=== PATIENT | female | born 2000 | race Caucasian/White ===

== ENCOUNTER 2025-05-19 17:21 | Emergency (ER) | payer OTHER ==
[~2025-05-19] VITALS: Ht 167.6 cm; Wt 105.0 kg
[2025-05-19 17:28] VITALS: O2SAT 98
[2025-05-19] MEDS ORDERED: AMOX1TAB16 MT (18:51)
[2025-05-19] MEDS ORDERED: IBUP-2028 PO (18:51)
[2025-05-19] MEDS ORDERED: ACET-2708 PO (18:51)
[2025-05-19 19:05] VITALS: BP 120/83; PULSE 82; RESP 16; TEMP 37.1; O2SAT 99
== END 2025-05-19 19:08 | disposition home or self-care (01) ==
LOC: ER 17:21
DX: J02.0 Streptococcal pharyngitis (principal); J32.9 Chronic sinusitis, unspecified
CPT/HCPCS: 87070; 87430; 99283